=== PATIENT | male | born 1995 | race Caucasian/White ===

== ENCOUNTER 2020-08-11 15:14 | Emergency (ER) | payer BC, OTHER ==
[2020-08-11] MEDS ORDERED: NORMAL SALINE 1000 ML 1,000 ML IV ONE (15:37)
--- NOTE | 2020-08-11 15:38 | ER Document Report ---
ED Medical Screen (RME) - General Chief Complaint: Palpitations Stated Complaint: DIZZINESS Time Seen by Provider: 08/11/20 15:33 Notes: Patient presents complaining of dizziness with exertion. Patient states that he feels as though he is going to faint with exertion. Patient states he was going up a flight of stairs today and his heart started to race and he felt as though he would pass out. Patient denies any chest pain, nausea or vomiting. Patient states symptoms have been off and on for the past 3 weeks. Patient denies any chronic medical problems. I have greeted and performed a rapid initial assessment of this patient. A com prehensive ED assessment and evaluation of the patient, analysis of test results and completion of the medical decision making process will be conducted by additional ED providers. - Related Data Allergies/Adverse Reactions: No Known Allergies Allergy (Unverified 08/11/20 15:30) Past Medical History - Social History Chew tobacco use (# tins/day): No Drug Abuse: None Physical Exam - Vital signs Vitals: Temp Pulse Resp BP Pulse Ox 98.2 F 102 H 16 147/88 H 98 08/11/20 15:26 08/11/20 15:26 08/11/20 15:26 08/11/20 15:26 08/11/20 15:26 - Respiratory Respiratory status: No respiratory distress Breath sounds: Normal - Cardiovascular Rhythm: Regular Heart sounds: S1 appreciated, S2 appreciated Murmur: No Course - Vital Signs Vital signs: Temp Pulse Resp BP Pulse Ox 98.2 F 102 H 16 147/88 H 98 08/11/20 15:26 08/11/20 15:26 08/11/20 15:26 08/11/20 15:26 08/11/20 15:26
--- NOTE | 2020-08-11 16:19 | RADIOLOGY REPORT (SQ) ---
EXAM DESCRIPTION: CHEST SINGLE VIEW IMAGES COMPLETED DATE/TIME: 08/11/2020 4:10 pm REASON FOR STUDY: dizziness COMPARISON: None. EXAM PARAMETERS: NUMBER OF VIEWS: One view. TECHNIQUE: Single frontal radiographic view of the chest acquired. RADIATION DOSE: NA LIMITATIONS: None. FINDINGS: LUNGS AND PLEURA: No opacities, masses or pneumothorax. No pleural effusion. MEDIASTINUM AND HILAR STRUCTURES: No masses. Contour normal. HEART AND VASCULAR STRUCTURES: Heart normal in size. Normal vasculature. BONES: No acute findings. HARDWARE: None in the chest. OTHER: No other significant finding. IMPRESSION: NO ACUTE RADIOGRAPHIC FINDING IN THE CHEST. TECHNICAL DOCUMENTATION: JOB ID: [id number] 2010 [employer]- All Rights Reserved Reading location - IP/workstation name: [email or web address]
[2020-08-11 16:42] LABS: ABSOLUTE EOSINOPHILS # (AUTO) 0.3 10^3/uL (0.0-0.6); ABSOLUTE MONOCYTES (AUTO) 0.7 10^3/uL (0.1-1.4); BASOPHILS % (AUTO) 0.2 % (0-2); EOSINOPHILS % (AUTO) 2.9 % (0-6); HEMATOCRIT 39.9 % (37.9-51.0); HEMOGLOBIN 14.1 g/dL (13.5-17.0); LYMPHOCYTES % (AUTO) 19.8 % (13-45); MEAN CORPUSCULAR HEMOGLOBIN 28.6 pg (27.0-33.4); MEAN CORPUSCULAR HGB CONC 35.3 g/dL (32.0-36.0); MEAN CORPUSCULAR VOLUME 81 fl (80-97); MONOCYTES % (AUTO) 7.2 % (3-13); PLATELET COUNT 360 10^3/uL (150-450); RED BLOOD COUNT 4.91 10^6/uL (4.35-5.55); RED CELL DISTRIBUTION WIDTH 13.2 % (11.5-14.0); SEGMENTED NEUTROPHILS % (AUTO) 69.9 % (42-78); TOTAL CELLS COUNTED % (AUTO) 100 %
[2020-08-11 17:07] LABS: ALBUMIN 4.8 g/dL (3.5-5.0); ALKALINE PHOSPHATASE 67 U/L (38-126); ANION GAP 10 (5-19); ASPARTATE AMINO TRANSFERASE 26 U/L (17-59); BILIRUBIN,DIRECT 0.1 mg/dL (0.0-0.4); BILIRUBIN,TOTAL 0.6 mg/dL (0.2-1.3); BLOOD UREA NITROGEN 11 mg/dL (7-20); CALCIUM 10.2 mg/dL (8.4-10.2); CARBON DIOXIDE 29 mmol/L (22-30); CHLORIDE 100 mmol/L (98-107); GLUCOSE 101 mg/dL (75-110); POTASSIUM 4.4 mmol/L (3.6-5.0); TOTAL PROTEIN 8.2 g/dL (6.3-8.2)
--- NOTE | 2020-08-11 19:49 | EKG REPORT ---
SEVERITY:- OTHERWISE NORMAL ECG - SINUS TACHYCARDIA : Confirmed by: Nikolai Fowler MD 11-Aug-2020 19:49:08
--- NOTE | 2020-08-11 20:41 | ER Document Report ---
Entered by PAULINA HOGAN SCRIBE 08/11/202001 Acting as scribe for:JORGE L JIM DO ED General - General Chief Complaint: Palpitations Stated Complaint: DIZZINESS Time Seen by Provider: 08/11/20 15:33 Primary Care Provider: ARLENE LIVINGSTON MD [ACTIVE STAFF] - 08/12/20 Information source: Patient Notes: This 25 year old male patient presents to the emergency department today with complaints of episodes of dizziness with exertion on and off for the past x3 weeks. Patient states he visits the gym 4-5 days a week and sometimes after exercising his heart is racing and is dizzy. Denies any cough, shortness of breath, fever, or covid exposure. Patient states he has never smoked, denies any medical history, and is not on any medications. - Related Data Allergies/Adverse Reactions: No Known Allergies Allergy (Unverified 08/11/20 15:30) Past Medical History - General Information source: Patient - Social History Smoking Status: Never Smoker Cigarette use (# per day): No Chew tobacco use (# tins/day): No Drug Abuse: None Family History: Hypertension Patient has homicidal ideation: No - Medical History Medical History: Negative Review of Systems - Review of Systems Constitutional: See HPI. denies: Fever EENT: No symptoms reported Cardiovascular: See HPI, Heart racing, Dizziness Respiratory: See HPI. denies: Cough, Short of breath Gastrointestinal: No symptoms reported Genitourinary: No symptoms reported Male Genitourinary: No symptoms reported Musculoskeletal: No symptoms reported Skin: No symptoms reported Hematologic/Lymphatic: No symptoms reported Neurological/Psychological: No symptoms reported -: Yes All other systems reviewed and negative Physical Exam - Vital signs Vitals: Temp Pulse Resp BP Pulse Ox 98.2 F 102 H 16 147/88 H 98 08/11/20 15:26 08/11/20 15:26 08/11/20 15:26 08/11/20 15:26 08/11/20 15:26 - General General appearance: Appears well, Alert - HEENT Head: Normocephalic, Atraumatic Eyes: Normal Pupils: PERRL - Respiratory Respiratory status: No respiratory distress Chest status: Nontender Breath sounds: Normal Chest palpation: Normal - Cardiovascular Rhythm: Regular Heart sounds: Normal auscultation Murmur: No - Abdominal Inspection: Normal Distension: No distension Bowel sounds: Normal Tenderness: Nontender - Extremities General upper extremity: Normal inspection, Normal ROM General lower extremity: Normal inspection, Normal ROM. No: Edema - Neurological Neuro grossly intact: Yes Cognition: Normal Orientation: AAOx4 [place] Coma Scale Eye Opening: Spontaneous [place] Coma Scale Verbal: Oriented [place] Coma Scale Motor: Obeys Commands [place] Coma Scale Total: 15 Speech: Normal Motor strength normal: LUE, RUE, LLE, RLE Sensory: Normal - Psychological Associated symptoms: Normal affect, Normal mood - Skin Skin Temperature: Warm Skin Moisture: Dry Skin Color: Normal Course - Vital Signs Vital signs: Temp Pulse Resp BP Pulse Ox 98.1 F 102 H 16 140/79 H 97 08/11/20 20:43 08/11/20 15:26 08/11/20 20:42 08/11/20 20:43 08/11/20 20:42 - Laboratory Result Diagrams: 08/11/20 16:23 08/11/20 16:23 - Diagnostic Test Radiology reviewed: Image reviewed, Reports reviewed - EKG Interpretation by Me EKG shows normal: Sinus rhythm Rate: Tachycardia - Sinus Tachy 101 BPM [address] axis no st elevation or depression my interpretation. Rhythm: NSR Discharge - Discharge Clinical Impression: Dizziness, Near syncope Condition: Stable Disposition: HOME, SELF-CARE Instructions: Dizziness ([facility]), Palpitations (Irregular or Rapid Heartrate) ([facility]) Additional Instructions: Call Dr. Livingston for follow up in the morning. Please return here for chest pain, shortness of breath or other problems or concerns. Your blood pressure was mildly elevated here. Be sure and have that rechecked. Forms: Elevated Blood Pressure Referrals: ARLENE LIVINGSTON MD [ACTIVE STAFF] - 08/12/20 I personally performed the services described in the documentation, reviewed and edited the documentation which was dictated to the scribe in my presence, and it accurately records my words and actions.
[2020-08-11 20:48] VITALS: BP 140/79
== END 2020-08-11 20:49 | disposition home or self-care (01) ==
LOC: ER 15:14
DX: R42 Dizziness and giddiness (principal); R55 Syncope and collapse; R00.2 Palpitations
CPT/HCPCS: 93005; 99285; 96360; 96361; 36415; 83735; 84443; 85025; 80053; 84484; 71045; 93010; J7030